=== PATIENT | female | born 1990 | race Hispanic/Latino ===

== ENCOUNTER 2020-04-16 10:39 | Emergency (ER) | payer SELFPAY ==
[~2020-04-16] VITALS: Ht 167.6 cm; Wt 104.3 kg
--- NOTE | 2020-04-16 11:44 | Emergency Department Note ---
History of Present Illnes History of Present Illness Chief Complaint: Suicide Attempt History of Present Illness This is a 29 year old female . 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 Any updates have been documented here. Past Medical History Recent Fever: No Clinical Suspicion of Infectio: No New/Unexplained Change in Ment: No Review of Systems Review of Systems Constitutional: Reports no symptoms EENTM: Reports no symptoms Cardiovascular: Reports no symptoms Respiratory: Reports no symptoms Gastrointestinal: Reports no symptoms Genitourinary: Reports no symptoms Musculoskeletal: Reports no symptoms Integumentary: Reports no symptoms Neurological: Reports no symptoms Psychological: Reports no symptoms Endocrine: Reports no symptoms Hematological/Lymphatic: Reports no symptoms Physical Exam Related Data Triage Vital Signs Vital Signs Date Time Temp Pulse Resp B/P (MAP) Pulse Ox O2 Delivery O2 Flow Rate FiO2 04/16/20 11:00 99.3 78 18 128/71 100 Room Air Vital signs reviewed: Yes Physical Exam CONSTITUTIONAL Constitutional: Present well-developed, Present well-nourished HENT HENT: Present normocephalic, Present atraumatic, Present oropharynx clear/moist, Present nose normal HENT L/R: Present left ext ear normal, Present right ext ear normal EYES Eyes: Reports PERRL, Reports conjunctivae normal NECK Neck: Present ROM normal PULMONARY Pulmonary: Present effort normal, Present breath sounds normal CARDIOVASCULAR Cardiovascular: Present regular rhythm, Present heart sounds normal, Present capillary refill normal, Present normal rate GASTROINTESTINAL Abdominal: Present soft, Present nontender, Present bowel sounds normal GENITOURINARY Genitourinary: Present exam deferred SKIN Skin: Present warm, Present dry MUSCULOSKELETAL Musculoskeletal: Present ROM normal NEUROLOGICAL Neurological: Present alert, Present oriented x 3, Present no gross motor or sensory deficits PSYCHOLOGICAL Psychological: Present mood/affect normal, Present judgement normal, Present other (Denies SI) Procedures 12 Lead ECG Interpretation ECG Interpretation : Pipe Wrapping Machine Operator: Interpreted by ED physician Date: Apr 16, 2020 Rhythm: sinus rhythm Rate: normal BPM: 81 QRS axis: normal ST segments normal: Yes T waves normal: Yes Clinical Impression: non-specific ECG Assessment & Plan Medical Decision Making MDM 29-year-old female with a history of suicide attempts in the past presents to emergency department for suicidal gestures with a knife. She currently denies SI. She is under emergency intermediate. Her is concerned that the patient will harm herself or be a danger to others. Psych labs were obtained and MAT team to evaluate. Discussed patient with MAT team and she will require psych iatric admission. We'll transfer to psychiatric facility. Reassessment Reassessment time: 12:11 Reassessment Well appearing, NAD Assessment & Plan Final Impression: (1) Suicidal behavior Depart Disposition: TRANS TO OTHER [facility] F[facility] Last Vital Signs Date Time Temp Pulse Resp B/P (MAP) Pulse Ox O2 Delivery O2 Flow Rate FiO2 04/16/20 11:00 99.3 78 18 128/71 100 Room Air YARED ANDERS MD Apr 16, 2020 11:44
--- NOTE | 2020-04-16 12:05 | NUR ---
NO ONE TO ONE SITTER NOTED IN ROOM. CALLED [facility] AND SPOKE TO JEREMIAH CASEY WHO WILL GET ONE IMMEDIATELY
[2020-04-16 12:37] LABS: BASOPHILS # (AUTO) 0.1 (0.0-0.1); BASOPHILS % 0.5 % (0.0-1.0); EOSINOPHILS # (AUTO) 0.1 (0.0-0.4); EOSINOPHILS % 0.6 % (0.0-6.0); HEMATOCRIT 40.6 % (34.2-44.1); HEMOGLOBIN 13.3 g/dL (12.0-16.0); LYMPHOCYTES # (AUTO) 2.1 (1.0-3.2); LYMPHOCYTES % 18.7 % (18.0-39.1); MEAN CORPUSCULAR HEMOGLOBIN 28.6 pg (28-32); MEAN CORPUSCULAR HGB CONC 32.8 g/dL (31-35); MEAN CORPUSCULAR VOLUME 87.3 fL (81-99); MONOCYTES # (AUTO) 0.5 (0.2-0.8); MONOCYTES % 4.8 % (4.4-11.3); NEUTROPHILS # (AUTO) 8.4 (2.1-6.9); PLATELET COUNT 337 x10e3/uL (140-360); RED BLOOD COUNT 4.65 x10e6/uL (3.6-5.1); RED CELL DISTRIBUTION WIDTH 12.7 % (11.7-14.4)
[2020-04-16 12:46] LABS: CLARITY,URINE SL CLOUDY (CLEAR); COLOR,URINE YELLOW (YELLOW); LEUKOCYTE ESTERASE ,URINE NEGATIVE (NEGATIVE); NITRITE,URINE NEGATIVE (NEGATIVE); PROTEIN,URINE DIPSTICK 2+ (NEGATIVE)
[2020-04-16 12:47] LABS: KETONES,URINE TRACE (NEGATIVE); PHENCYCLIDINE SCREEN,URINE NEGATIVE (NEGATIVE)
[2020-04-16 12:48] LABS: AMPHETAMINES SCREEN,URINE NEGATIVE (NEGATIVE); BENZODIAZEPINES SCREEN,URINE NEGATIVE (NEGATIVE)
[2020-04-16 12:49] LABS: BILIRUBIN,URINE NEGATIVE (NEGATIVE); URINE UROBILINOGEN 0.2 mg/dL (0.2 - 1)
[2020-04-16 12:57] LABS: ALANINE AMINOTRANSFERASE 30 IU/L (0-55); ALBUMIN 3.8 g/dL (3.5-5.0); ALKALINE PHOSPHATASE 104 IU/L (40-150); ANION GAP 17.7 mmol/L (8-16); BLOOD UREA NITROGEN 12 mg/dL (7-26); BUN/CREATININE RATIO 14 (6-25); CALCIUM 8.8 mg/dL (8.4-10.2); CARBON DIOXIDE 17 mmol/L (22-29); CHLORIDE 108 mmol/L (98-107); CREATININE, SERUM 0.83 mg/dL (0.57-1.11); EST GLOMERULAR FILTRATION RATE > 60 ML/MIN (60-); GLUCOSE 139 mg/dL (74-118); POTASSIUM 3.7 mmol/L (3.5-5.1); SODIUM 139 mmol/L (136-145)
[2020-04-16 13:02] LABS: SALICYLATE < 5.0 mg/dL (0-30)
[2020-04-16 13:12] LABS: BACTERIA,URINE RARE /HPF; EPITHELIAL CELLS,URINE FEW /LPF
[2020-04-16] MEDS ORDERED: ONDANSETRON HCL INJ 2MG/ML 2ML 2 MG/ML VIAL IV STA (16:33)
[2020-04-16] MEDS ORDERED: ACETAMINOPHEN 325 MG TAB PO ONE ×2 (16:45→22:00)
--- NOTE | 2020-04-17 07:38 | NUR ---
Walked in to pts room, pt sitting with arms crossed shaking foot, pt appears irritated. Pt reports she is upset that she cannot use her phone and her sister has been turned away twice. Pt reports she has had not food or water, noted food and water sitting on counter in room. Cell phone brought by family and placed in pt belonging bag. At this concern for increased agitation if pt speaks with partner or family. Notified CN. Pt has active JOSE. Diet tray coming from kitchen.
--- NOTE | 2020-04-17 08:09 | NUR ---
Pt given water and crackers while awaiting for breakfast tray. Pt started yelling at this RN stated that she is locked in here and we are not letting her talk to her family or feed her, redirected pt at that point, informed her to not yell at this RN, this RN exited room. Notified Automation Tech Tyler.
--- NOTE | 2020-04-17 11:53 | NUR ---
CALLED MAT TEAM, STILL PENDING PLACEMENT AT [facility], THEY DO NOT DISCHARGE UNTIL AROUND NOON, AND WILL HAVE TO WAIT AND SEE IF ABLE TO PLACE. PT IS SELF PAY AND THAT IS A BARRIER TO PLACEMENT.
--- NOTE | 2020-04-17 13:07 | NUR ---
Update given to Eli at [facility]
--- NOTE | 2020-04-17 15:32 | NUR ---
Patient requesting her phone to speak with her sister to update her on her status, spoke with Dr. Carlton and he approved supervised telephone calls with her sister only. Spoke with the patient and informed her of above approval and that the phone had to be returned as soon as the phone call was completed, pt verbalized understanding. Sitter at bedside also verbalized understanding of supervised phone call with sister. JACINTO Castro notified.
--- NOTE | 2020-04-17 19:19 | NUR ---
report received from Gloria CASEY
--- NOTE | 2020-04-18 05:00 | NUR ---
patient is sleeping in bed, symmetrical chest rise noted, no distress noted, pt is in paper scrubs, side rails x2, bed in lowest position, 1:1 sitter at bedside
[2020-04-18] MEDS ORDERED: DOCUSATE SODIUM 100 MG CAP PO ONE (14:15)
--- NOTE | 2020-04-19 02:19 | NUR ---
PT RESTING IN ROOM WITH EYES CLOSED AND NO S/S DISTRESS NOTED; SITTER REMAINS AT BEDSIDE
--- NOTE | 2020-04-19 06:29 | NUR ---
patient is awake in bed,no acute changes noted, no distress noted, vital signs WNL, side rails up x 2, bed in lowest position, 1:1 sitter at bedside
--- NOTE | 2020-04-19 07:14 | NUR ---
Assumed care of patient from offgoing RN. 1:1 sitter noted. Pt lying supine on stretcher, calm and resting with eyes closed.
--- NOTE | 2020-04-19 08:39 | NUR ---
Faxed last 24hrs of vitals to [facility] for updated info.
--- NOTE | 2020-04-19 14:32 | NUR ---
[facility] BE FA[facility]
--- NOTE | 2020-04-19 15:54 | NUR ---
MAT team paginator at bedside speaking with patient.
[2020-04-19 18:46] VITALS: BP 118/72
--- NOTE | 2020-04-19 18:57 | NUR ---
Pt verbalized understanding of ED discharge and follow up care. Pt at this time denies SI/HI. Affect pleasant, pt smiling and joking with staff.
== END 2020-04-19 19:05 | disposition home or self-care (01) ==
LOC: ER 10:47
DX: T14.91XA Suicide attempt, initial encounter (principal); X78.1XXA Intentional self-harm by knife, initial encounter; Y92.008 Other place in unspecified non-institutional (private) residence as the place of occurrence of the external cause; F31.9 Bipolar disorder, unspecified
CPT/HCPCS: 36415; 80053; 80307; 80329 ×2; 81001; 84702; 85025; 93005; 99285; J2405